=== PATIENT | female | born 1955 | race Asian ===

== ENCOUNTER 2018-10-23 23:44 | Emergency (ER) | payer OTHER ==
--- NOTE | 2018-10-24 00:25 | PDOC ---
History of Present Illness - General Stated Complaint: HEADACHE, HYPERTENSION Time Seen by Provider: 10/24/18 00:25 History Source: Patient Exam Limitations: No Limitations - History of Present Illness Initial Comments: Pt is a 63 yo F, with PMH of DM and HLD, who is presenting with complaints of throbbing L occipital headache and high blood pressure. Starting at about 8 pm when pt was at work, she noticed a throbbing headache in her L occiptal region with associated light-headedness. Pt states the pain does not radiate to her neck or back, and did not take any medication at home for pain. 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 At work, pt began to experience the headache and when they took her BP at work, her BP was 150/78. Her repeat BP at home was 170/80, and her BG was 105. Due to her high BP, her family members brought her to the ER, as she has no history of HTN. Pt denies any new lifting or straining at work. Pt denies any fevers/chills, vision changes, syncope, chest pain, palpitations, SOB, nausea/vomiting, abdominal pain, urinary symptoms, diarrhea/constipation, or leg swelling. Social: Pt denies any cigarette, alcohol, or drug use. Pt denies any recent travel or sick contacts. Surgical: no relevant history Family: no relevant history 10/24/18 05:41 Past History - Travel Traveled outside of the country in the last 30 days: No Close contact w/someone who was outside of country & ill: No - Past Medical History Allergies/Adverse Reactions: Allergies Allergy/AdvReac Type Severity Reaction Status Date / Time No Known Allergies Allergy Verified 10/24/18 02:16 Cardiac Disorders: No Hx Myocardial Infarction: No Diabetes: Yes HTN: No Hypercholesterolemia: Yes - Surgical History Cardiac Surgery: No Neurologic Surgery: No Review of Systems - Review of Systems Able to Perform ROS?: Yes Is the patient limited Swazi proficient: No Constitutional: Yes: Weight Stable. No: Chills, Diaphoresis, Fever, Loss of Appetite HEENTM: No: Eye Pain, Blurred Vision, Recent change in vision, Double Vision, Nose Congestion, Hearing Loss, Throat Pain Respiratory: No: Cough, Shortness of Breath Cardiac (ROS): Yes: Lightheadedness. No: Chest Pain, Edema, Irregular Heart Rate, Palpitations, Syncope, Chest Tightness ABD/GI: No: Constipated, Diarrhea, Nausea, Poor Appetite, Poor Fluid Intake, Vomiting, Abdominal cramping : No: Burning, Dysuria, Frequency, Pain, Urgency Musculoskeletal: No: Back Pain, Joint Pain, Muscle Pain, Muscle Weakness, Neck Pain Integumentary: No: Rash Neurological: Yes: Headache. No: Numbness, Paresthesia, Seizure, Tremors, Weakness, Unsteady Gait, Ataxia, Dizziness Psychiatric: No: Sleep Pattern Change, Change in Appetite Endocrine: No: Increased Urine, Change in Weight Hematologic/Lymphatic: No: Anemia, Blood Clots, Easy Bleeding, Easy Bruising All Other Systems: Reviewed and Negative *Physical Exam - Physical Exam General Appearance: Yes: Nourished, Appropriately Dressed. No: Apparent Distress HEENT: positive: EOMI, REG, Normal ENT Inspection, Normal Voice, TMs Normal, Pharynx Normal, Hearing Grossly Normal. negative: Scleral Icterus (R), Scleral Icterus (L), Pharyngeal Erythema, Tonsillar Exudate, Tonsillar Erythema, Rhinorrhea, TM Bulging, TM Dull, TM Erythema Neck: positive: Trachea midline, Normal Thyroid, Supple. negative: Tender, Rigid, Carotid bruit, Lymphadenopathy (R), Lymphadenopathy (L), Rigidity Respiratory/Chest: positive: Lungs Clear, Normal Breath Sounds. negative: Chest Tender, Respiratory Distress, Accessory Muscle Use, Crackles, Wheezing Cardiovascular: positive: Regular Rhythm, Regular Rate, S1, S2. negative: Edema , JVD, Murmur Vascular Pulses: Carotid (R): 4+, Carotid (L): 4+ Gastrointestinal/Abdominal: positive: Normal Bowel Sounds, Flat, Soft. negative : Tender, Organomegaly, Pulsatile Mass, Distended, Guarding, Rebound Rectal Exam: positive: deferred Lymphatic: negative: Adenopathy, Tenderness Musculoskeletal: positive: Normal Inspection. negative: CVA Tenderness Extremity: positive: Normal Capillary Refill, Normal Inspection, Normal Range of Motion, Pelvis Stable. negative: Tender, Pedal Edema Integumentary: positive: Normal Color, Dry, Warm. 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 negative: EOM Palsy, Facial Droop , Numbness, Sensory Deficit, Finger to Nose Medical Decision Making - Medical Decision Making Pt was seen at bedside, also will be seen by attending Dr. Grant. Pt presenting with complaints of throbbing L occipital headache and high blood pressure. Starting at about 8 pm when pt was at work, she noticed a throbbing headache in her L occiptal region with associated light-headedness. Pt states the pain does not radiate to her neck or back, and did not take any medication at home for pain. 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 At work, pt began to experience the headache and when they took her BP at work, her BP was 150/78. Her repeat BP at home was 170/80, and her BG was 105. Due to her high BP, her family members brought her to the ER, as she has no history of HTN. Pt denies any new lifting or straining at work. Pt denies any fevers/chills, vision changes, syncope, chest pain, palpitations, SOB, nausea/vomiting, abdominal pain, urinary symptoms , diarrhea/constipation, or leg swelling. 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 PT alert and oriented. Heart and lung sounds clear. Benign exam. Repeat BP improving -- 150s/ 80s. Considering HTN as reflex 2/2 to pain. Minimal concern for intracranial pathology/hemorrhage as pt has no FNDs, no current head pain. Minimal concern for ACS as pt has no hx of HTN, no chest pain. Ordered ECG. No additional work-up needed at this time, as pt has no focal neuro deficits, no history of HTN, no current complaints. Will reassess BP after pain control. Provided 650 mg PO tylenol for improvement of pain control. Will continue to reassess pt and monitor for symptomatic improvement. 10/24/18 01:34 ECG: HR 57, intervals normal. Moderate LVH, TWI in lead III. No significant ST segment changes. No prior EKG for comparison. 10/24/18 01:57 Repeat BP after tylenol was 122/84. Pt feels much better after pain control. Pt can be discharged to home with follow-up. Pt advised to follow-up with PCP in 1-2 days. Strict return precautions provided with pt understanding. 10/24/18 02:06 10/24/18 02:35 12/31/18 05:39 *DC/Admit/Observation/Transfer Diagnosis at time of Disposition: Asymptomatic hypertension - Discharge Dispostion Disposition: HOME Condition at time of disposition: Improved Decision to Admit order: No - Referrals Referrals: [facility] [place] [facility] [Provider Group] - Patient Instructions Printed Discharge Instructions: DI for High Blood Pressure Additional Instructions: You were seen in the ER today for a headache and high blood pressure. Your exam and EKG today showed no concerning findings. Please follow-up with your primary care doctor within 1-2 days to discuss your visit and make sure your symptoms have improved. Please return to the ER if you have any worsening pain, changes in behavior, vision changes, development of fevers or chills, loss of consciousness, inability to tolerate food or fluids, or any other concerns. - Post Discharge Activity
--- NOTE | 2018-10-24 00:47 | PDOC ---
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 no h/o hypertension. no new med changes. no sick contacts or illnesses. - Physicial Exam PE: 10/24/18 01:35 NAD, well appearing, PERRL, EOMI, MMM, nl conjunctiva, anicteric; neck supple. + occipital neck TTP, no meningeal signs. FROM. lungs clear, RRR, abdomen soft nontender. [place] x4, no focal neuro deficits. No peripheral edema. normal color for ethnicity, WWP. speech clear. gait stable. CN II-XII grossly intact. 10/24/18 01:35 - Medical Decision Making 10/24/18 01:36 hpi as documented VS with mild hypertension, but +headache w/o cranial deficits or focal neuro deficits. EKG nonischemic, NSR given tylenol analgesia feels improved, repeat BP good. outpatient clinical recheck of BP, likely anxiety induced vs headache/pain low utility for CT head w/o deficits or neuro changes, doubt [employer] bleed/mass/ pathology no labs indicated, no cp or sob. DC in stable condition with family. outpatient recheck with PCP. avoid triggers/ stressors. 10/24/18 01:38 Heart Score/ECG Review - ECG Impressions Normal ECG: Yes Non-specific ST Elevation: No Comment:: 10/24/18 01:38 sinus bradycardia, normal intervals and axis. isolated TWI in III, no reciprocal changes or ST segment derangements. normal intervals.
[2018-10-24] MEDS ORDERED: ACETAMINOPHEN 325 MG TABLET (FP) PO ONE (00:56)
[2018-10-24] MEDS ORDERED: ACETAMINOPHEN 325 MG TABLET (FP) ONE (01:34)
[2018-10-24 02:17] VITALS: BP 176/76; PULSE 68; TEMP 97.7; BMI 26.8
--- NOTE | 2018-10-24 12:17 | EKG ---
Test Reason : Blood Pressure : / mmHG Vent. Rate : 057 BPM Atrial Rate : 057 BPM P-R Int : 168 ms QRS Dur : 088 ms QT Int : 428 ms P-R-T Axes : 057 000 002 degrees QTc Int : 416 ms SINUS BRADYCARDIA MODERATE VOLTAGE CRITERIA FOR LVH, MAY BE NORMAL VARIANT BORDERLINE ECG NO PREVIOUS ECGS AVAILABLE Confirmed by SHANNA JORDAN MD ([id number]) on 10/24/2018 12:17:23 PM Referred By: Confirmed By:SHANNA JORDAN MD
== END 2018-10-24 02:40 | disposition home or self-care (01) ==
LOC: JER 23:44
DX: I10 Essential (primary) hypertension (principal)
CPT/HCPCS: 93005; 93010; 99282-25